=== PATIENT | male | born 1970 | race Caucasian/White ===

== ENCOUNTER 2016-09-12 12:57 | Observation (INO) | payer BC ==
--- NOTE | ~2016-09-12 | HP ---
History And Physical [place] [id number] [facility] [place]. [address] NAME: DOUG COCHRAN : 72 STATUS : ADM Renzo PAT#: [id number] AGE: 46 ADM/REG DATE : 09/12/16 MR#: [id number] REPORT SERV DATE: 09/12/16 DICTATED BY: SERGIO CARR DATE: 09/12/16 REPORT STATUS : Draft TRANSCRIBED BY: MODL DATE: 09/12/16 DATE OF ADMISSION: 09/12/2016 CHIEF COMPLAINT: Chest pain. HISTORY OF PRESENT ILLNESS: The patient is a 46-year-old male. He has a past medical history significant for coronary artery disease. He states stent placement x2 approximately four years ago in [place]. Local office nurse practitioner is Dr. Roldan. Last evaluation approximately two years ago, possibly a cardiac cath. No further followup since. He also has a history of hypertension, hyperlipidemia, diabetes, and thyroid disease. He presents today with a greater than one-week history complaint of chest pain. He states it is very similar to the previous episodes he had, although not as severe. He describes a central to slightly left chest pain and pressure that are present both at rest and with exertion. He also notices a little bit of pleurisy with deep inspiration. He states that his more predominant symptom is shortness of breath particularly with any type of exertion. He states it gets worse. He presented to the emergency department today. Troponin and EKG are negative, but he is very concerned about his symptoms as again they are very similar to previous. He is being admitted for further evaluation and treatment. PAST MEDICAL HISTORY: As covered above. PAST SURGICAL HISTORY: He had a stent placement and he had a carpal tunnel release x2. He also apparently had some type of brain lesion that was treated with radiation therapy. MEDICATIONS: Current medications which of note he states he has only recently within the past week or so restarted his blood pressure medicine. Medicines are aspirin 81, Butrans patch weekly, Coreg 6.25 b.i.d., Neurontin 300 t.i.d.; NovoLog, Toujeo 40 at bedtime; levothyroxine 200; Prinivil 10; metformin 500 with lunch and metformin 1000 with supper; testosterone. ALLERGIES: NONE. FAMILY HISTORY: Positive for coronary vascular disease in both parents. Mother is living. Father is . SOCIAL HISTORY: No EtOH. He smokes one to one and a half packs per day. REVIEW OF SYSTEMS: HEENT: He has had some tingling and burning he states on the left side of his head. CARDIOVASCULAR: As covered in HPI. PULMONARY: He has had no fever, chills, or purulent sputum. GI: No nausea or vomiting. : No frequency, urgency, or dysuria. NEUROMUSCULOSKELETAL: Positive only for the chest pain. Otherwise, a 14-point review of systems is negative. History And Physical [address] [address] NAME: DOUG COCHRAN : 72 STATUS : ADM Renzo PAT#: [id number] AGE: 46 ADM/REG DATE : 09/12/16 MR#: [id number] REPORT SERV DATE: 09/12/16 DICTATED BY: SERGIO CARR DATE: 09/12/16 REPORT STATUS : Draft TRANSCRIBED BY: ABDIRASHID DATE: 09/12/16 PHYSICAL EXAMINATION: VITAL SIGNS: Blood pressure 103/64, pulse 67, temperature 97.4, respirations 17, sat 98%. GENERAL: He is awake, alert, and oriented; in no acute distress. HEENT: Normocephalic, atraumatic. Sclerae are nonicteric. NECK: Supple. HEART: Regular rate and rhythm without significant murmurs, gallops, or rubs. LUNGS: Clear to auscultation without rhonchi, rales, or wheezes. ABDOMEN: Nontender and nondistended. EXTREMITIES: No clubbing, cyanosis, or edema. NEUROLOGIC: Grossly nonfocal. LABORATORY DATA: Sodium 137, potassium 4.0, chloride 98, CO2 of 28, BUN and creatinine are 11 and 1.01, glucose 435. Troponins 0.02. White count 7.1, hemoglobin and hematocrit are 14.9/41.6, platelets 182. D-dimer was less than 0.27. IMAGING: Chest x-ray was negative. EKG: Normal sinus rhythm, normal EKG. ASSESSMENT: Chest pain, diabetes, hypertension, and hyperlipidemia. PLAN: The patient has been admitted. We will schedule a stress test in the a.m. if he is negative for enzymes x2. We will treat his blood sugar and check an A1c. He does not seem to have a pulmonary etiology for his complaint. His D-dimer and chest x-ray are negative. We will monitor. TLF/MODL Sergio Carr M.D. / [id number] CC: Sergio Carr M.D. NO PCP
--- NOTE | ~2016-09-12 | DS ---
Discharge Summary [facility] [address] [place]. [address] NAME: DOUG COCHRAN : 72 STATUS : DIS Renzo PAT#: [id number] AGE: 46 ADM/REG DATE : 09/12/16 MR#: [id number] REPORT SERV DATE: 09/14/16 DICTATED BY: JR. LEON WILLIAM JOHN DATE: 09/13/16 REPORT STATUS : Draft TRANSCRIBED BY: ABDIRASHID DATE: 09/13/16 ADMISSION DATE: 09/12/2016 DISCHARGE DATE: 09/13/2016 DISCHARGE DIAGNOSES: Include: 1. Chest pain. 2. History of coronary artery disease. 3. Diabetes mellitus type 2 with a hemoglobin A1c of 14.9. 4. Medical noncompliance. 5. Hypertension. 6. Hyperlipidemia. OPERATIONS, PROCEDURES, AND TREATMENTS: 1. PA and lateral chest x-ray done 09/12/2016 which showed no acute cardiopulmonary process. 2. Myocardial perfusion scan which showed Christiano protocol level 3 with 76% predicted maximal heart rate with 10 METS achieved. There were symptoms of chest pressure without EKG changes. Nuclear portion was unremarkable for ischemia. DISCHARGE MEDICATIONS: Include: 1. Aspirin 81 mg orally daily. 2. Coreg 6.25 mg orally twice a day. 3. Neurontin 300 mg 3 times a day. 4. Sliding scale Humalog insulin. 5. Lantus 40 units at bedtime. 6. Synthroid 200 mcg daily. 7. Lisinopril 10 mg daily. 8. Metformin 500 with lunch, 1000 at bedtime. 9. Buprenorphine 10 mcg patch, changing every Friday. HOSPITAL COURSE: The patient was a 46-year-old white male with past medical history for coronary artery disease with stents, presented to emergency room with chest pain on 09/12/2016. The patient has multiple risk factors, including diabetes, hypertension, hyperlipidemia. Exam was remarkable for low D-dimer of less than 0.27. Normal troponins. EKG was unremarkable. The patient was admitted to the Clinical Decision Unit. He was monitored on telemetry and had no a arrhythmias. He underwent a cardiac stress test which showed no evidence of ischemia and was considered to be a low risk. Regarding the patient's diabetes mellitus type 2, hemoglobin A1c was 14.9. Talking with the patient, he says he does not really take his insulin much, only when he feels like it. We discussed need for diabetic education as well as very much tightened control. He declined any further intervention at this time. We will follow up with his primary care provider, Dr. Hernandez. For discharge exam and laboratory, please see daily progress note. Discharge Summary [place] [address]. [address] NAME: DOUG COCHRAN : 72 STATUS : DIS Renzo PAT#: [id number] AGE: 46 ADM/REG DATE : 09/12/16 MR#: [id number] REPORT SERV DATE: 09/14/16 DICTATED BY: JR. LEON WILLIAM JOHN DATE: 09/13/16 REPORT STATUS : Draft TRANSCRIBED BY: MODL DATE: 09/13/16 DISCHARGE DIET: ADA diet. ACTIVITY: As tolerated. FOLLOWUP: With Dr. Roldan and Dr. Hernandez. WJF/ABDIRASHID Jake Leon Jr, MD / [id number] CC: Jake Leon Jr, MD
[2016-09-12 12:02] LABS: BASOPHILS 0.3 %; BASOPHILS ABSOLUTE 0.02 10/3/uL (0.0-0.16); EOSINOPHILS 1.8 %; EOSINOPHILS ABSOLUTE 0.14 10/3/uL (0.0-0.53); ER CBC TAT 0 Hrs 05 Mins; HEMATOCRIT 41.6 % (40.0-51.0); HEMOGLOBIN 14.9 g/dL (13.6-17.8); IMMATURE GRANULOCYTES 0.4 %; IMMATURE GRANULOCYTES ABSOLUTE 0.03 10/3/uL (0.0-0.11); LYMPHOCYTES 34.3 %; LYMPHOCYTES ABSOLUTE 2.65 10/3/uL (0.67-4.30); MEAN CORPUS HGB CONC 35.8 g/dL (32.0-36.0); MEAN CORPUSCULAR HEMOGLOB 29.6 pg (26.0-34.0); MEAN CORPUSCULAR VOLUME 82.5 fL (80-100); MEAN PLATELET VOLUME 10.1 fL (9.2-13.0); MONOCYTES ABSOLUTE 0.39 10/3/uL (0.21-1.20); NEUTROPHILS 58.2 %; PLATELET COUNT 182 10/3/uL (150-400); RBC DISTRIBUTION WIDTH 12.3 % (12.0-16.0); RED CELL COUNT 5.04 10/6/uL (4.7-6.1); WHITE BLOOD CELLS 7.7 10/3/uL (4.5-10.5)
[2016-09-12 12:03] LABS: MANUAL DIFF NO %
[2016-09-12 12:13] LABS: PARTIAL THROMBO TIME 25.2 SEC (22.5-37.2); PROTIME (NOT ORD) 13.5 SEC (12.0-14.5)
[2016-09-12 12:20] LABS: CALCIUM, SERUM 8.8 MG/DL (8.5-10.4); CHEST PAIN PROFILE TAT 0 Hrs 23 Mins; CHLORIDE, SERUM 98 MMOL/L (96-112); CO2 (CARBON DIOXIDE) 28 MMOL/L (24-34); CREATININE 1.01 MG/DL (0.70-1.30); GFR AFRICAN AMERICAN 104 ML/MIN (>=60); GFR NON AFRICAN AMERICAN 89 ML/MIN (>=60); SODIUM, SERUM 137 MMOL/L (135-148); TROPONIN I <0.02 NG/ML (<0.05)
[2016-09-12 12:22] LABS: BUN (BLOOD UREA NITROGEN) 11 MG/DL (6-23); GLUCOSE, SERUM 435 MG/DL (60-99)
[~2016-09-12 12:57] MED LIST: ADDERALL30 MG PO; LOP50 PO; OPANA ER40 MG PO; ROXICODONE30 MG PO; SYN.15 PO; TESTOSTERONE; XANAX2 MG PO; ZESTORETIC1 TAB PO
[2016-09-12] MEDS ORDERED: NEUR300 PO (13:06)
[2016-09-12] MEDS ORDERED: TESTOSTERONE IM (13:07)
[2016-09-12] MEDS ORDERED: HALF81 PO (13:07)
[2016-09-12] MEDS ORDERED: BUTRANS1 EAC1 TOP (13:08)
[2016-09-12] MEDS ORDERED: LEVOTHYROXIN200 MCG PO (13:10)
[2016-09-12] MEDS ORDERED: PRIN10 PO (13:10)
[2016-09-12] MEDS ORDERED: NOVOLOG SC (13:11)
[2016-09-12] MEDS ORDERED: COREG6 PO (13:11)
[2016-09-12] MEDS ORDERED: FORTAMET500 MG PO ×2 (13:12)
[2016-09-12] MEDS ORDERED: TOUJEO SC (13:23)
[2016-09-12 18:15] LABS: ULTRASENSITIVE TSH 0.917 MCIU/ML (0.358-3.740)
== END 2016-09-13 14:58 | disposition home or self-care (01) ==
LOC: ER 12:57 → CDU1 15:14 → CDU2 16:42
PROVIDERS: Hospitalist
DX: R07.9 Chest pain, unspecified (principal); I10 Essential (primary) hypertension; I25.10 Atherosclerotic heart disease of native coronary artery without angina pectoris; E11.9 Type 2 diabetes mellitus without complications; E78.5 Hyperlipidemia, unspecified; F17.210 Nicotine dependence, cigarettes, uncomplicated; M79.7 Fibromyalgia; Z91.19 Patient's noncompliance with other medical treatment and regimen; Z98.890 Other specified postprocedural states; Z79.82 Long term (current) use of aspirin; Z79.899 Other long term (current) drug therapy; Z82.49 Family history of ischemic heart disease and other diseases of the circulatory system; Z79.4 Long term (current) use of insulin
CPT/HCPCS: 71020; 78452; 80048; 82962; 83036; 83735; 84443; 84484; 85025; 85379; 85610; 85730; 93005; 93017; 96372; 96374; 96375; 99285; A9270-GY; A9502; G0378